=== PATIENT | female | born 1930 | race Caucasian/White ===

== ENCOUNTER 2019-06-12 09:40 | Outpatient (CLI) | payer MEDICARE ==
--- NOTE | 2019-06-15 15:23 | EEG ---
Referring Physician: TAYE CHEEK EEG # [id number] TEST TYPE: ROUTINE OUTPATIENT REPORT: AN EEG USING THE [employer] TEN-TWENTY SYSTEM OF ELECTRODE PLACEMENT WAS PERFORMED. The waking background is a medium amplitude 8-9 hertz alpha frequency. The patient remained awake throughout the study. Photic stimulation was unremarkable. No epileptiform features were seen. IMPRESSION: THIS IS A NORMAL AWAKE EEG. Linen Worker: NARGIS Director Public: [email or web address]
== END 2019-06-12 09:41 | disposition home or self-care (01) ==
LOC: EEG 09:40
PROVIDERS: ATTEND Psychiatry & Neurology Neurology
DX: G40.909 Epilepsy, unspecified, not intractable, without status epilepticus (principal)
CPT/HCPCS: 95816